=== PATIENT | female | born 1970 | race American Indian/Alaskan Native ===

== ENCOUNTER 2017-10-25 13:18 | Outpatient (CLI) | payer MEDICARE ==
--- NOTE | 2017-10-25 14:41 | History and Physical Report ---
History of Present Illness Date of examination: 10/25/17 Chief complaint: lt breast lesion Medications and Allergies Allergies Allergy/AdvReac Type Severity Reaction Status Date / Time No Known Allergies Allergy Unverified 05/22/14 18:38 Home Medications Medication Instructions Recorded Confirmed Last Taken Type Cyclobenzaprine [Flexeril 10mg] 10 mg PO TID PRN #14 tablet 05/22/14 Unknown Rx HYDROcodone/APAP 5-325 [[place] 1 each PO Q6HR PRN #14 tablet 05/22/14 Unknown Rx 5/325] Ibuprofen [Motrin 800 MG tab] 800 mg PO Q8H #30 tablet 05/22/14 Unknown Rx
--- NOTE | 2017-10-25 14:42 | Procedure Note ---
Date of procedure: 10/25/17 Pre-op diagnosis: lt breast nodule Post-op diagnosis: same Procedure: u/s guided lt breast bx Findings: solid tissue Anesthesia: local Surgeon: TRIXIE FLOWERS Estimated blood loss: none Pathology: list (lt breast tissue) Condition: stable Disposition: same day
--- NOTE | 2017-10-25 15:09 | Mammography Report ---
Ultrasound-guided left breast biopsy, clip placement, two-view mammography: Patient presents with outside images demonstrating an asymmetry in the lateral left breast for biopsy. Ultrasound imaging demonstrates that in the deep breast approximately 5 cm from the nipple in the 2:30 position there is a circumscribed ovoid shaped hypoechoic nodule with a relatively echolucent center. It measures roughly 1 cm in maximum dimension. The skin was cleansed and draped. 1% lidocaine used for local anesthesia. A 13-gauge guide was successfully placed adjacent to the lesion. With a 14-gauge disposable Bard biopsy gun several specimens were obtained under ultrasound guidance. A marker was left in place and ultrasound guidance. A followup two-view mammogram confirm positioning of the marker in the nodule as identified on the outside mammogram images. The entrance site was bandaged. The patient was given followup instructions. There were no patient or procedural complications encountered.
== END 2017-10-25 13:19 | disposition home or self-care (01) ==
LOC: SPVWC 13:18
PROVIDERS: ATTEND Internal Medicine
DX: N63.20 Unspecified lump in the left breast, unspecified quadrant (principal); N64.89 Other specified disorders of breast; R92.8 Other abnormal and inconclusive findings on diagnostic imaging of breast
CPT/HCPCS: 19083; A4648; G0206; 88305

== ENCOUNTER 2018-11-30 08:41 | Emergency (ER) | payer MEDICARE, OTHER ==
--- NOTE | 2018-11-30 09:33 | Emergency Department Report ---
- General Chief Complaint: Upper Respiratory Infection Stated Complaint: BAD COUGHT AT NIGHT Time Seen by Provider: 11/30/18 09:15 Source: patient Mode of arrival: Ambulatory Limitations: No Limitations - History of Present Illness Initial Comments: 48-year-old female presents to the ED with URI symptoms. Patient reports cough 1 week, at times productive of sputum. She states cough is worse at night, but is still present during the daytime. Patient denies fever, wheezing, shortness of breath, leg swelling MD Complaint: fever -: week(s) (1) Severity: moderate Consistency: intermittent Improves With: nothing Worsens With: nothing Associated Symptoms: cough. denies: fever, chills, shortness of breath - Related Data Previous Rx's Medication Instructions Recorded Last Taken Type Cyclobenzaprine [Flexeril 10mg] 10 mg PO TID PRN #14 tablet 05/22/14 Unknown Rx HYDROcodone/APAP 5-325 [[place] 1 each PO Q6HR PRN #14 tablet 05/22/14 Unknown Rx 5/325] Ibuprofen [Motrin 800 MG tab] 800 mg PO Q8H #30 tablet 05/22/14 Unknown Rx Benzonatate [Tessalon Perles] 100 mg PO Q8HR PRN #20 capsule 11/30/18 Unknown Rx predniSONE [Prednisone] 50 mg PO QDAY #5 tablet 11/30/18 Unknown Rx Allergies Allergy/AdvReac Type Severity Reaction Status Date / Time No Known Allergies Allergy Unverified 05/22/14 18:38 ED Review of Systems ROS: Stated complaint: BAD COUGHT AT NIGHT Other details as noted in HPI Comment: All other systems reviewed and negative Constitutional: denies: chills, fever Respiratory: cough. denies: shortness of breath, wheezing Cardiovascular: denies: chest pain Gastrointestinal: denies: nausea, vomiting Musculoskeletal: other (denies leg swelling) ED Past Medical Hx - Past Medical History Previous Medical History?: No Hx Psychiatric Treatment: Yes Additional medical history: major depression - Surgical History Past Surgical History?: Yes Hx Cholecystectomy: Yes Additional Surgical History: left kidney donated - Social History Smoking Status: Current Every Day Smoker Substance Use Type: None - Medications Home Medications: Home Medications Medication Instructions Recorded Confirmed Last Taken Type Cyclobenzaprine [Flexeril 10mg] 10 mg PO TID PRN #14 tablet 05/22/14 Unknown Rx HYDROcodone/APAP 5-325 [[place] 1 each PO Q6HR PRN #14 tablet 05/22/14 Unknown Rx 5/325] Ibuprofen [Motrin 800 MG tab] 800 mg PO Q8H #30 tablet 05/22/14 Unknown Rx Benzonatate [Tessalon Perles] 100 mg PO Q8HR PRN #20 capsule 11/30/18 Unknown Rx predniSONE [Prednisone] 50 mg PO QDAY #5 tablet 11/30/18 Unknown Rx ED Physical Exam - General Limitations: No Limitations General appearance: alert, in no apparent distress - Head Head exam: Present: atraumatic, normocephalic - Eye Eye exam: Present: normal appearance - ENT ENT exam: Present: mucous membranes moist - Neck Neck exam: Present: normal inspection - Respiratory Respiratory exam: Present: normal lung sounds bilaterally. Absent: respiratory distress - Cardiovascular Cardiovascular Exam: Present: regular rate, normal rhythm - GI/Abdominal GI/Abdominal exam: Present: soft. Absent: distended - Extremities Exam Extremities exam: Absent: pedal edema, calf tenderness - Neurological Exam Neurological exam: Present: alert, oriented X3 ED Course Vital Signs 11/30/18 09:00 Temperature 97.7 F Pulse Rate 76 Respiratory 16 Rate Blood Pressure 129/69 O2 Sat by Pulse 95 Oximetry ED Medical Decision Making - Medical Decision Making Patient afebrile, O2 sats normal, no resp distress, no pitting edema in extremities. Lungs clear on exam. Will d/c home w/ tessalon perles. Likely viral URI. Return precautions given. Outpatient follow-up advised. - Differential Diagnosis URI, pneumonia, pulm edema Critical care attestation.: If time is entered above; I have spent that time in minutes in the direct care of this critically ill patient, excluding procedure time. ED Disposition Clinical Impression: Upper respiratory infection Disposition: DC-01 TO HOME OR SELFCARE Is pt being admited?: No Condition: Stable Instructions: Upper Respiratory Infection (ED) Prescriptions: Benzonatate [Tessalon Perles] 100 mg PO Q8HR PRN #20 capsule PRN Reason: Cough predniSONE [Prednisone] 50 mg PO QDAY #5 tablet Referrals: [facility] [Provider Group] - 3-5 Days Time of Disposition: 09:35
== END 2018-11-30 09:45 | disposition home or self-care (01) ==
LOC: ED 08:41
CPT/HCPCS: 99282

== ENCOUNTER 2020-07-08 13:55 | Outpatient (CLI) | payer OTHER ==
--- NOTE | 2020-07-08 16:24 | Mammography Report ---
RIGHT DIAGNOSTIC MAMMOGRAM INDICATION: Status post right breast stereotactic biopsy COMPARISON: 06/04/2020, 05/06/2020. FINDINGS: Right breast CC and LM projection mammograms were obtained. These document location of a bi opsy marker in the right breast at the 9:00 position at middle depth. This is at the site of recent s tereotactic biopsy and the location of the biopsy marker appears accurately positioned. IMPRESSION: Right breast mammograms documenting accurate location of biopsy marker status post right breast stere otactic biopsy of calcifications located at the 9:00 position. Please see stereotactic biopsy report performed the same day for findings. . BI-RADS Category 4: Suspicious for Malignancy. Signer Name: Navdeep Garcia MD Signed: 07/08/2020 4:20 PM Workstation Name: [id number]
--- NOTE | 2020-07-12 12:33 | Mammography Report ---
PERCUTANEOUS STEREOTACTIC-GUIDED RIGHT BREAST BIOPSY WITH MARKER PLACEMENT HISTORY: Right breast calcifications. COMPARISON: 06/04/2020, 05/06/2020 (imaging performed at an outside facility) CONSENT: Technique, risks and alternatives were discussed with the patient and informed written conse nt obtained. PROCEDURE: The patient was placed in the prone position on the Siemens biopsy table. The calcifications in the r ight breast at the 9:00 position at middle depth were identified mammographically. It should be noted that there is a much larger of calcifications spanning up to 9.3 x 5.2 cm within the lateral breast. The most suspicious area of calcification is were targeted for this biopsy. Audio Visual Tech and stereo pair im ages were acquired to generate the computer-derived coordinates for targeting. The skin overlying the chosen biopsy site were cleansed with Betadine. The skin and superficial soft tissues were anesthet ized with a small amount of buffered 1% lidocaine. The deeper soft tissues were anesthetized with bu ffered 1% lidocaine with epinephrine. A small dermatotomy was created through which the mammotome biopsy device was placed. Pre and post fi re stereo pair images were acquired to confirm appropriate needle trajectory. Using vacuum assistance , multiple core specimen samples were acquired. A post procedure stereo pair image suggested adequate sampling of the target. A post procedure specimen radiograph confirmed calcifications within core sp ecimen samples. A biopsy marker was deposited at the biopsy site, and appropriate biopsy marker depo sition confirmed via a stereo pair image. Manual pressure was applied at the biopsy site to achieve hemostasis. The incision margins were appro ximated with Steri-Strips. Postprocedure care instructions were administered in both verbal and writt en forms. The patient voiced understanding and departed the [facility] in stable, satisfactory con dition. IMPRESSION Technically successful stereotactic biopsy of right breast calcifications. It should be noted that on outside images the calcifications span up to 9.3 x 5.2 cm within the lateral right breast. The most suspicious of these calcifications was targeted for this biopsy. If pathologic findings are found to be not benign, additional biopsies may be indicated if breast conservation therapy is considered. An addendum will be added to this report with pathology results at a later date. Signer Name: Navdeep Garcia MD Signed: 07/08/2020 4:15 PM Workstation Name: [id number]
== END 2020-07-08 13:56 | disposition home or self-care (01) ==
LOC: SPVWC 13:55
PROVIDERS: ATTEND Surgery
DX: R92.1 Mammographic calcification found on diagnostic imaging of breast (principal); R92.8 Other abnormal and inconclusive findings on diagnostic imaging of breast; D05.11 Intraductal carcinoma in situ of right breast; F17.210 Nicotine dependence, cigarettes, uncomplicated; F32.9 Major depressive disorder, single episode, unspecified; F41.9 Anxiety disorder, unspecified; Z98.890 Other specified postprocedural states; Z79.899 Other long term (current) drug therapy; Z90.49 Acquired absence of other specified parts of digestive tract
CPT/HCPCS: 19081; 77065; 88305; A4648

== ENCOUNTER 2020-08-21 08:13 | Outpatient (CLI) | payer OTHER ==
--- NOTE | 2020-08-21 16:47 | Magnetic Resonance Report ---
Bilateral breast MRI with and without contrast. History: New diagnosis right breast cancer Procedure: Axial T1 and T2-weighted fat-sat images were obtained precontrast. 18 cc MultiHance was i njected intravenously and serial axial T1-weighted images with fat saturation were obtained postcontr ast. 3-D MIP projections, Kinetic analysis and subtraction imaging was utilized to evaluate. A XPlace 8 channel breast coil was utilized for image acquisition. Comparison: Right mammogram postbiopsy 07/08/2020, bilateral mammogram 05/06/2020, right diagnostic edi mogram 06/04/2020, right breast ultrasound 06/04/2020 Findings: Background level of enhancement is mild. No suspicious axillary or clavicular nodes are identified. No abnormal bone marrow signal is seen. No significant chest wall enhancement is noted. Right breast: Biopsy changes are seen in the central portion of the right breast with adjacent small amount of what appears to be vascular enhancement without definite suspicious neoplastic type enhance ment seen. No other areas of significant suspicion are noted in the right breast. A small benign-appe aring lymph node is seen as is noted mammographically. Left breast: Previous biopsy site is seen in the central mid to posterior left breast as is seen mamm ographically with a contained biopsy clip. Only minimal enhancement is seen in this area. No separate areas of suspicious enhancement are seen. Impression: Biopsy changes are noted as above. No suspicious areas of enhancement are seen. BIRADS: 6: Known diagnosis breast cancer Signer Name: Vimal Chase MD Signed: 08/21/2020 4:42 PM Workstation Name: [id number]
== END 2020-08-21 08:14 | disposition home or self-care (01) ==
LOC: SPVIMAG 08:13
PROVIDERS: ATTEND Surgery
DX: C50.411 Malignant neoplasm of upper-outer quadrant of right female breast (principal)
CPT/HCPCS: A9577; C8908; 77049

== ENCOUNTER 2020-08-28 13:42 | Outpatient (CLI) | payer OTHER ==
--- NOTE | 2020-08-28 17:02 | Mammography Report ---
RIGHT BREAST STEREOTACTIC CORE NEEDLE BIOPSY, TWO SITES INDICATION: Patient has recent biopsy proven right breast DCIS. Patient presents for additional stere otactic biopsy of calcifications more anterior and posterior to the biopsy proven DCIS to evaluate ex tent of disease. The procedure was explained to the patient and informed consent obtained. PROCEDURE: The patient was positioned on the prone biopsy table with administrative program specialist and stereotactic images o btained of the right breast. After appropriate imaging, the breast was prepped with Betadine swabs. A total of 10 mL of 1% buffered lidocaine and 10 mL 1% lidocaine with epinephrine was injected using a 25-gauge needle to anesthetize the area surrounding the mammographic lesion. Using a CC from above approach, a 9-gauge vacuum-assisted core needle biopsy device was inserted to the level of the lesion following the stereotactic coordinates, targeting the posterior extent of ca lcifications in the lateral right breast. Stereotactic images were obtained to confirm accurate posit ioning of the probe. A total of 12 tissue specimens were excised and transported through the probe. Next, using a CC from below approach, a 9 gauge vacuum-assisted core needle biopsy device was inserte d to the level of the lesion following the stereotactic coordinates, targeting the anterior extent of calcifications in the central to subareolar right breast. Stereotactic images were obtained to confi rm accurate positioning of the probe. A total of 12 tissue specimens were excised and transported thr ough the probe. Individual tissue specimens were placed in the lid of the sterile specimen container and radiographed . Upon completion of the procedure, the specimens were placed in a 10% formalin solution and sent for histologic analysis. Pressure was held on the biopsy site utilizing the sterile 4 x 4 gauze until all bleeding subsided. A gauze dressing was placed over the biopsy site to provide a pressure dressing. Postbiopsy instructio ns were reviewed with the patient and a copy given to her. No immediate complications occurred. INTERPRETATION: Digital images made during the procedure show the probes to be appropriately positio jackelin during the biopsy. A micromarker clip was introduced through the probe to the level of the biopsy sites. POST-PROCEDURE MAMMOGRAM: Refer to separately dictated postbiopsy mammogram. SPECIMEN RADIOGRAPH: Magnification images of the tissue specimen were obtained. Despite what appeare d to be appropriate positioning of the biopsy probe, only 1-2 calcifications are present in the poste rior biopsy specimen, and no definitive calcifications were present in the more anterior specimen. HISTOLOGY: PENDING IMPRESSION: 1. Stereotactic biopsy of 2 sites in the right breast as detailed above. Despite what appeared to be appropriate positioning of the probes, there are few calcifications present on specimen radiograph. T herefore, additional management decisions can be made pending biopsy results. Signer Name: Dian Diaz MD Signed: 08/28/2020 4:57 PM Workstation Name: [id number]
== END 2020-08-28 13:43 | disposition home or self-care (01) ==
LOC: SPVWC 13:42
PROVIDERS: ATTEND Surgery
DX: R92.1 Mammographic calcification found on diagnostic imaging of breast (principal); D05.11 Intraductal carcinoma in situ of right breast; R92.8 Other abnormal and inconclusive findings on diagnostic imaging of breast; F32.9 Major depressive disorder, single episode, unspecified; F41.9 Anxiety disorder, unspecified; F17.210 Nicotine dependence, cigarettes, uncomplicated; Z79.899 Other long term (current) drug therapy; Z90.49 Acquired absence of other specified parts of digestive tract; Z98.890 Other specified postprocedural states
CPT/HCPCS: 19081; 19082; 88305; A4648

== ENCOUNTER 2021-04-03 11:45 | Emergency (ER) | payer MEDICARE ==
--- NOTE | 2021-04-03 14:07 | Event Note ---
ED Screening Note ED Screening Note: Patient presents for right leg pain that has been ongoing for little over a month She states that her calf feels tight and feels like she has a charley horse She states that a little over a month ago she went to [facility] and had an x-ray performed an ultrasound of her leg she states that those were normal. she states that she was advised she had cellulitis of the toe but that resolved after antibiotics She has a history of breast cancer and just finished radiation is supposed to begin chemotherapy treatment She states that she cannot get an appointment with her primary care doctor until April 15 No allergies to medicines She has varicose veins present to the bilateral lower extremities No significant edema No erythema or increased warmth Pain with palpation of the right posterior calf Sensation intact No skin changes Full range of motion of the lower extremity No bony tenderness to palpation This initial assessment/diagnostic orders/clinical plan/treatment(s) is/are subject to change based on patients health status, clinical progression and re- assessment by fellow clinical providers in the ED. Further treatment and workup at subsequent clinical providers discretion. Patient/guardian urged not to elope from the ED as their condition may be serious if not clinically assessed and managed. Initial orders include: us labs
[2021-04-03 14:48] LABS: Basophils % (Auto) 1.2 % (0.0-1.8); Eosinophils # (Auto) 0.1 K/mm3 (0.0-0.4); Hematocrit 41.6 % (30.3-42.9); Lymphocytes # (Auto) 1.2 K/mm3 (1.2-5.4); Lymphocytes % (Auto) 30.8 % (13.4-35.0); Mean Corpuscular HGB Conc 34 % (30-34); Mean Corpuscular Volume 94 fl (79-97); Monocytes # (Auto) 0.3 K/mm3 (0.0-0.8); Monocytes % (Auto) 8.7 % (0.0-7.3); Platelet Count 199 K/mm3 (140-440); Red Blood Count 4.44 M/mm3 (3.65-5.03); Red Cell Distribution Width 14.6 % (13.2-15.2)
[2021-04-03 15:01] LABS: Alanine Aminotransferase 17 units/L (7-56); BUN/Creatinine Ratio 18; Blood Urea Nitrogen 18 mg/dL (7-17); Calcium 8.9 mg/dL (8.4-10.2); Hemolysis Index 15
[2021-04-03 15:12] LABS: INR 0.98 (0.87-1.13)
[2021-04-03 15:13] LABS: Partial Thromboplastin Time 28.2 Sec. (24.2-36.6)
--- NOTE | 2021-04-03 16:17 | Vascular Lab Report ---
DUPLEX DOPPLER LOWER EXTREMITY VEINS, RIGHT INDICATION / CLINICAL INFORMATION: right calf pain, hx of cancer. TECHNIQUE: Duplex doppler imaging was performed through the veins of the right lower extremity using venous comp ression and other maneuvers. COMPARISON: None available. FINDINGS: RIGHT COMMON FEMORAL VEIN: Negative. RIGHT FEMORAL VEIN: Negative. RIGHT POPLITEAL VEIN: Negative. RIGHT CALF VEINS: Negative. ADDITIONAL FINDINGS: None. IMPRESSION: 1. No sonographic evidence for DVT in the right lower extremity. Signer Name: Claude Walker MD Signed: 04/03/2021 4:13 PM Workstation Name: [id number]
--- NOTE | 2021-04-03 16:23 | Vascular Lab Report ---
VL arterial duplex LE RT INDICATION / CLINICAL INFORMATION: right calf pain, hx of cancer. COMPARISON: None available FINDINGS: Triphasic waveforms demonstrated within the distal right external iliac artery as well as t he common femoral, superficial femoral, profunda femoral, and popliteal arteries. Biphasic waveforms within the right posterior tibial, anterior tibial, and dorsalis pedis arteries. No evidence of occlu kendra. Adjacent soft tissues are unremarkable. IMPRESSION: No sonographic evidence of significant stenosis within the arterial system of the right lower extremi ty. Doppler Waveform: - Triphasic is normal. - Biphasic is abnormal if clear transition from triphasic signal along vascular tree. - Monophasic is abnormal. Signer Name: Homer Tirado MD Signed: 04/03/2021 4:18 PM Workstation Name: [id number]
--- NOTE | 2021-04-03 16:52 | Emergency Department Report ---
ED Extremity Problem HPI - General Chief complaint: Extremity Problem,Nontraumatic Stated complaint: RT LEG PAIN Time Seen by Provider: 04/03/21 14:03 Source: patient Mode of arrival: Ambulatory Limitations: No Limitations - History of Present Illness Initial comments: Patient presents for right leg pain that has been ongoing for little over a month She states that her calf feels tight and feels like she has a "charley horse" She states that a little over a month ago she went to [facility] and had an x-ray performed an ultrasound of her leg she states that those were normal. she states that she was advised she had cellulitis of the toe but that resolved after antibiotics She has a history of breast cancer and just finished radiation is supposed to begin chemotherapy treatment She states that she cannot get an appointment with her primary care doctor until April 15 No allergies to medicines She denies any fever, drainage, redness, swelling, vomiting, diarrhea, chills, numbness, weakness Severity scale (0 -10): 5 - Related Data Previous Rx's Medication Instructions Recorded Last Taken Type Cyclobenzaprine [Flexeril 10mg] 10 mg PO TID PRN #14 tablet 05/22/14 Unknown Rx HYDROcodone/APAP 5-325 [[place] 1 each PO Q6HR PRN #14 tablet 05/22/14 Unknown Rx 5/325] Ibuprofen [Motrin 800 MG tab] 800 mg PO Q8H #30 tablet 05/22/14 Unknown Rx Benzonatate [Tessalon Perles] 100 mg PO Q8HR PRN #20 capsule 11/30/18 Unknown Rx predniSONE [Prednisone] 50 mg PO QDAY #5 tablet 11/30/18 Unknown Rx Naproxen [EC-Naprosyn] 375 mg PO BID PRN #14 tablet. 04/03/21 Unknown Rx methOCARBAMOL [Robaxin TAB] 500 mg PO BID PRN #14 tab 04/03/21 Unknown Rx Allergies Allergy/AdvReac Type Severity Reaction Status Date / Time No Known Allergies Allergy Verified 03/23/19 17:47 ED Review of Systems ROS: Stated complaint: RT LEG PAIN Other details as noted in HPI Comment: All other systems reviewed and negative ED Past Medical Hx - Past Medical History Previous Medical History?: No Hx of Cancer: Yes (Right breast CA, surgery Jan 2021) Hx Psychiatric Treatment: Yes Additional medical history: major depression - Surgical History Hx Cholecystectomy: Yes Additional Surgical History: left kidney donated - Social History Smoking Status: Current Every Day Smoker - Medications Home Medications: Home Medications Medication Instructions Recorded Confirmed Last Taken Type Cyclobenzaprine [Flexeril 10mg] 10 mg PO TID PRN #14 tablet 05/22/14 Unknown Rx HYDROcodone/APAP 5-325 [[place] 1 each PO Q6HR PRN #14 tablet 05/22/14 Unknown Rx 5/325] Ibuprofen [Motrin 800 MG tab] 800 mg PO Q8H #30 tablet 05/22/14 Unknown Rx Benzonatate [Tessalon Perles] 100 mg PO Q8HR PRN #20 capsule 11/30/18 Unknown Rx predniSONE [Prednisone] 50 mg PO QDAY #5 tablet 11/30/18 Unknown Rx Naproxen [EC-Naprosyn] 375 mg PO BID PRN #14 tablet. 04/03/21 Unknown Rx methOCARBAMOL [Robaxin TAB] 500 mg PO BID PRN #14 tab 04/03/21 Unknown Rx ED Physical Exam - General Limitations: No Limitations General appearance: alert, in no apparent distress - Head Head exam: Present: atraumatic, normocephalic - Eye Eye exam: Present: normal appearance - ENT ENT exam: Present: mucous membranes moist - Respiratory Respiratory exam: Present: normal lung sounds bilaterally. Absent: respiratory distress, wheezes, rales, rhonchi, stridor, chest wall tenderness, accessory muscle use, decreased breath sounds, prolonged expiratory - Cardiovascular Cardiovascular Exam: Present: regular rate, normal rhythm, normal heart sounds. Absent: systolic murmur, diastolic murmur, rubs, gallop - Extremities Exam Extremities exam: Present: other (ttp to the right posterior calf, no bony ttp of the RLE, no obvious edema, no erythema, no increased warmth, no signs of ulceration, FROM of the RLE, neurovasculalry intact, multiple varicosities) - Neurological Exam Neurological exam: Present: alert, oriented X3 - Psychiatric Psychiatric exam: Present: normal affect, normal mood - Skin Skin exam: Present: warm, dry, intact ED Course Vital Signs 04/03/21 12:57 Temperature 98.3 F Pulse Rate 68 Respiratory 18 Rate O2 Sat by Pulse 100 Oximetry ED Medical Decision Making - Lab Data Result diagrams: 04/03/21 14:26 04/03/21 14:26 Lab Results 04/03/21 04/03/21 04/03/21 Range/Units 14:26 14:26 14:26 WBC 4.0 L (4.5-11.0) K/mm3 RBC 4.44 (3.65-5.03) M/mm3 Hgb 14.0 (10.1-14.3) gm/dl Hct 41.6 (30.3-42.9) % MCV 94 (79-97) fl MCH 32 (28-32) pg MCHC 34 (30-34) % RDW 14.6 (13.2-15.2) % Plt Count 199 (140-440) K/mm3 Lymph % (Auto) 30.8 (13.4-35.0) % [place] % (Auto) 8.7 H (0.0-7.3) % Eos % (Auto) 2.0 (0.0-4.3) % Baso % (Auto) 1.2 (0.0-1.8) % Lymph # (Auto) 1.2 (1.2-5.4) K/mm3 [place] # (Auto) 0.3 (0.0-0.8) K/mm3 Eos # (Auto) 0.1 (0.0-0.4) K/mm3 Baso # (Auto) 0.0 (0.0-0.1) K/mm3 Seg Neutrophils % 57.3 (40.0-70.0) % Seg Neutrophils # 2.3 (1.8-7.7) K/mm3 PT 12.8 (12.2-14.9) Sec. INR 0.98 (0.87-1.13) APTT 28.2 (24.2-36.6) Sec. Sodium 137 (137-145) mmol/L Potassium 4.3 (3.6-5.0) mmol/L Chloride 101.4 (98-107) mmol/L Carbon Dioxide 27 (22-30) mmol/L Anion Gap 13 mmol/L BUN 18 H (7-17) mg/dL Creatinine 1.0 (0.6-1.2) mg/dL Estimated GFR > 60 ml/min BUN/Creatinine Ratio 18 % Glucose 93 (65-100) mg/dL Calcium 8.9 (8.4-10.2) mg/dL Total Bilirubin 0.20 (0.1-1.2) mg/dL AST 20 (5-40) units/L ALT 17 (7-56) units/L Alkaline Phosphatase 108 (35-129) units/L Total Protein 7.2 (6.3-8.2) g/dL Albumin 4.0 (3.9-5) g/dL Albumin/Globulin Ratio 1.3 % - Radiology Data Radiology results: report reviewed Ordering Physician: MESFIN ROD Date of Service: 04/03/21 Procedure(s): VL venous duplex LE RT Accession Number(s): [id number] cc: MESFIN ROD DUPLEX DOPPLER LOWER EXTREMITY VEINS, RIGHT INDICATION / CLINICAL INFORMATION: right calf pain, hx of cancer. TECHNIQUE: Duplex doppler imaging was performed through the veins of the right lower extremity using venous compression and other maneuvers. COMPARISON: None available. FINDINGS: RIGHT COMMON FEMORAL VEIN: Negative. RIGHT FEMORAL VEIN: Negative. RIGHT POPLITEAL VEIN: Negative. RIGHT CALF VEINS: Negative. ADDITIONAL FINDINGS: None. IMPRESSION: 1. No sonographic evidence for DVT in the right lower extremity. Signer Name: Claude Puentes MD Signed: 04/03/2021 4:13 PM Workstation Name: [id number] Transcribed By: CH Dictated By: CLAUDE PUENTES Electronically Authenticated By: CLAUDE PUENTES Signed Date/Time: 04/03/211612 DD/ 11 TD/TT: Ordering Physician: MESFIN ROD Date of Service: 04/03/21 Procedure(s): VL arterial duplex LE RT Accession Number(s): [id number] cc: MESFIN ROD VL arterial duplex LE RT INDICATION / CLINICAL INFORMATION: right calf pain, hx of cancer. COMPARISON: None available FINDINGS: Triphasic waveforms demonstrated within the distal right external iliac artery as well as the common femoral, superficial femoral, profunda femoral, and popliteal arteries. Biphasic waveforms within the right posterior tibial, anterior tibial, and dorsalis pedis arteries. No evidence of occlusion. Adjacent soft tissues are unremarkable. IMPRESSION: No sonographic evidence of significant stenosis within the arterial system of the right lower extremity. Doppler Waveform: - Triphasic is normal. - Biphasic is abnormal if clear transition from triphasic signal along vascular tree. - Monophasic is abnormal. Signer Name: Abigail Tirado MD Signed: 04/03/2021 4:18 PM Workstation Name: [id number] Transcribed By: JS Dictated By: ABIGAIL TIRADO MD Electronically Authenticated By: ABIGAIL TIRADO MD Signed Date/Time: 04/03/211617 DD/ 15 TD/TT: Print - Medical Decision Making Patient presents for right leg pain that has been ongoing for little over a month She states that her calf feels tight and feels like she has a "charley horse" She states that a little over a month ago she went to [facility] and had an x-ray performed an ultrasound of her leg she states that those were normal. she states that she was advised she had cellulitis of the toe but that resolved after antibiotics She has a history of breast cancer and just finished radiation is supposed to begin chemotherapy treatment She states that she cannot get an appointment with her primary care doctor until April 15 No allergies to medicines She denies any fever, drainage, redness, swelling, vomiting, diarrhea, chills, numbness, weakness Vitals are stable. On exam:ttp to the right posterior calf, no bony ttp of the RLE, no obvious edema, no erythema, no increased warmth, no signs of ulceration, FROM of the RLE, neurovasculalry intact, multiple varicosities. Given patient's history of cancer and having calf pain ultrasounds were ordered. She is not having any chest pain or shortness of breath. She has no clinical signs of PE. Venous lower extremity ultrasound: 1. No sonographic evidence for DVT in the right lower extremity. Arterial lower extremity ultrasound: No sonographic evidence of significant stenosis within the arterial system of the right lower extremity. labs are stable. She has no signs of cellulitis, skin is intact, no signs of ulceration, no signs of septic joint or gout. Patient given prescription for medications. Advised patient Please take medication as prescribed as needed. Do not drive or operate machinery while taking muscle relaxer Robaxin. May use ice pack, heating pad, rest, and epsom salt bath. Follow-up with your primary care doctor. Follow-up with a vascular doctor. Return to emergency room for any new or worsening symptoms. Critical care attestation.: If time is entered above; I have spent that time in minutes in the direct care of this critically ill patient, excluding procedure time. ED Disposition Clinical Impression: Right leg pain Varicose vein of leg Qualifiers: Varicose vein complication: unspecified Laterality: right Qualified Code(s): I83.91 - Asymptomatic varicose veins of right lower extremity Disposition: DC-01 TO HOME OR SELFCARE Is pt being admited?: No Does the pt Need Aspirin: No Condition: Stable Instructions: Varicose Veins, Leg Cramps Additional Instructions: Please take medication as prescribed as needed. Do not drive or operate [employer] while taking muscle relaxer Robaxin. May use ice pack, heating pad, rest, and epsom salt bath. Follow-up with your primary care doctor. Follow-up with a vascular doctor. Return to emergency room for any new or worsening symptoms. Prescriptions: Naproxen [EC-Naprosyn] 375 mg PO BID PRN #14 tablet.dr LUCERO Reason: pain methOCARBAMOL [Robaxin TAB] 500 mg PO BID PRN #14 tab PRN Reason: muscle spasm/pain Referrals: KAN GREGORY MD [Primary Care Provider] - 2-3 Days [facility] [Provider Group] - 2-3 Days Time of Disposition: 16:50 Print Language: GUATEMALAN
== END 2021-04-03 17:28 | disposition home or self-care (01) ==
LOC: ED 11:45
DX: I83.91 Asymptomatic varicose veins of right lower extremity (principal); F32.9 Major depressive disorder, single episode, unspecified; F17.200 Nicotine dependence, unspecified, uncomplicated; Z90.49 Acquired absence of other specified parts of digestive tract; Z79.899 Other long term (current) drug therapy
CPT/HCPCS: 36415; 80053; 85025; 85610; 85730; 99283

== ENCOUNTER 2022-06-07 11:59 | Emergency (ER) | payer MEDICARE ==
--- NOTE | 2022-06-07 12:44 | XRay Report ---
CHEST 2 VIEWS INDICATION / CLINICAL INFORMATION: SOB. COMPARISON: None available. FINDINGS: SUPPORT DEVICES: None. HEART / MEDIASTINUM: The heart size and pulmonary vasculature are normal. LUNGS / PLEURA: No significant pulmonary or pleural abnormality. No pneumothorax. ADDITIONAL FINDINGS: The left hemidiaphragm is slightly higher than the right, unchanged. There is a right cervical rib. IMPRESSION: No acute findings. Signer Name: Dion Pierre MD Signed: 06/07/2022 12:39 PM Workstation Name: [id number]
[2022-06-07] MEDS ORDERED: IPRATROPIUM/ALBUTEROL SULFATE 3 ML AMPUL.NEB IH ONE (14:59)
[2022-06-07] MEDS ORDERED: BENZONATATE 100 MG CAP PO ONE (14:59)
[2022-06-07] MEDS ORDERED: ACETAMINOPHEN W/CODEINE 300-30 MG TAB PO ONE (14:59)
[2022-06-07] MEDS ORDERED: predniSONE 20 MG TAB PO ONE (14:59)
--- NOTE | 2022-06-07 15:57 | Emergency Department Report ---
ED ENT HPI - General Chief complaint: Upper Respiratory Infection Stated complaint: WHEEZING/COUGH/RUNNY NOSE Time Seen by Provider: 06/07/22 14:52 Source: patient Mode of arrival: Ambulatory Limitations: No Limitations - History of Present Illness Initial comments: 51-year-old black female with a past medical history of breast cancer presents to the emergency department for evaluation of 1 week history of shortness of breath, wheezing, cough, congestion, and runny nose. She denies fever and chest pain. She states that she has taken some aewy-dey-uvtvwzb medications without any improvement. MD complaint: other (Wheezing, shortness of breath, cough, congestion, and runny nose) -: Gradual, week(s) (1) Severity scale (0 -10): 0 Associated Symptoms: cough, rhinorrhea. denies: fever, gum swelling, toothache, pain with swallowing, sore throat, tinnitus, hearing loss, discharge from ear - Related Data Previous Rx's Medication Instructions Recorded Last Taken Type Cyclobenzaprine [Flexeril 10mg] 10 mg PO TID PRN #14 tablet 05/22/14 Unknown Rx HYDROcodone/APAP 5-325 [[place] 1 each PO Q6HR PRN #14 tablet 05/22/14 Unknown Rx 5/325] Ibuprofen [Motrin 800 MG tab] 800 mg PO Q8H #30 tablet 05/22/14 Unknown Rx Benzonatate [Tessalon Perles] 100 mg PO Q8HR PRN #20 capsule 11/30/18 Unknown Rx predniSONE [Prednisone] 50 mg PO QDAY #5 tablet 11/30/18 Unknown Rx Naproxen [EC-Naprosyn] 375 mg PO BID PRN #14 tablet. 04/03/21 Unknown Rx methOCARBAMOL [Robaxin TAB] 500 mg PO BID PRN #14 tab 04/03/21 Unknown Rx Albuterol Mdi (or & Nicu Only) 2 puff IH QID PRN #8.5 gram 06/07/22 Unknown Rx [ProAir HFA Inhaler] Benzonatate [Tessalon Perles] 100 mg PO Q8HR PRN #30 cap 06/07/22 Unknown Rx Prednisone [predniSONE 10 mg 10 mg PO .TAPER #1 pack 06/07/22 Unknown Rx (6-Day Pack, 21 Tabs)] guaiFENesin/CODEINE [Robitussin AC] 5 ml PO TID PRN #120 ml 06/07/22 Unknown Rx Allergies Allergy/AdvReac Type Severity Reaction Status Date / Time No Known Allergies Allergy Verified 03/23/19 17:47 ED Dental HPI - General Chief complaint: Upper Respiratory Infection Stated complaint: WHEEZING/COUGH/RUNNY NOSE Time Seen by Provider: 06/07/22 14:52 Source: patient Mode of arrival: Ambulatory Limitations: No Limitations - Related Data Previous Rx's Medication Instructions Recorded Last Taken Type Cyclobenzaprine [Flexeril 10mg] 10 mg PO TID PRN #14 tablet 05/22/14 Unknown Rx HYDROcodone/APAP 5-325 [[place] 1 each PO Q6HR PRN #14 tablet 05/22/14 Unknown Rx 5/325] Ibuprofen [Motrin 800 MG tab] 800 mg PO Q8H #30 tablet 05/22/14 Unknown Rx Benzonatate [Tessalon Perles] 100 mg PO Q8HR PRN #20 capsule 11/30/18 Unknown Rx predniSONE [Prednisone] 50 mg PO QDAY #5 tablet 11/30/18 Unknown Rx Naproxen [EC-Naprosyn] 375 mg PO BID PRN #14 tablet. 04/03/21 Unknown Rx methOCARBAMOL [Robaxin TAB] 500 mg PO BID PRN #14 tab 04/03/21 Unknown Rx Albuterol Mdi (or & Nicu Only) 2 puff IH QID PRN #8.5 gram 06/07/22 Unknown Rx [ProAir HFA Inhaler] Benzonatate [Tessalon Perles] 100 mg PO Q8HR PRN #30 cap 06/07/22 Unknown Rx Prednisone [predniSONE 10 mg 10 mg PO .TAPER #1 pack 06/07/22 Unknown Rx (6-Day Pack, 21 Tabs)] guaiFENesin/CODEINE [Robitussin AC] 5 ml PO TID PRN #120 ml 06/07/22 Unknown Rx Allergies Allergy/AdvReac Type Severity Reaction Status Date / Time No Known Allergies Allergy Verified 03/23/19 17:47 ED Review of Systems ROS: Stated complaint: WHEEZING/COUGH/RUNNY NOSE Other details as noted in HPI Comment: All other systems reviewed and negative Constitutional: denies: chills, diaphoresis, fever, malaise, weakness Eyes: denies: eye pain, eye discharge, vision change ENT: congestion. denies: ear pain, throat pain Respiratory: cough, shortness of breath, wheezing. denies: SOB with exertion, SOB at rest, stridor Cardiovascular: denies: chest pain, palpitations, dyspnea on exertion, orthopnea, edema, syncope, paroxysmal nocturnal dyspnea Gastrointestinal: denies: abdominal pain, nausea, vomiting Genitourinary: denies: urgency, dysuria Musculoskeletal: denies: back pain Skin: denies: rash, lesions Neurological: denies: headache, weakness, numbness ED Past Medical Hx - Past Medical History Hx Psychiatric Treatment: Yes Additional medical history: major depression - Surgical History Hx Cholecystectomy: Yes Additional Surgical History: left kidney donated - Social History Smoking Status: Former Smoker - Medications Home Medications: Home Medications Medication Instructions Recorded Confirmed Last Taken Type Cyclobenzaprine [Flexeril 10mg] 10 mg PO TID PRN #14 tablet 05/22/14 Unknown Rx HYDROcodone/APAP 5-325 [[place] 1 each PO Q6HR PRN #14 tablet 05/22/14 Unknown Rx 5/325] Ibuprofen [Motrin 800 MG tab] 800 mg PO Q8H #30 tablet 05/22/14 Unknown Rx Benzonatate [Tessalon Perles] 100 mg PO Q8HR PRN #20 capsule 11/30/18 Unknown Rx predniSONE [Prednisone] 50 mg PO QDAY #5 tablet 11/30/18 Unknown Rx Naproxen [EC-Naprosyn] 375 mg PO BID PRN #14 tablet.dr 04/03/21 Unknown Rx methOCARBAMOL [Robaxin TAB] 500 mg PO BID PRN #14 tab 04/03/21 Unknown Rx Albuterol Mdi (or & Nicu Only) 2 puff IH QID PRN #8.5 gram 06/07/22 Unknown Rx [ProAir HFA Inhaler] Benzonatate [Tessalon Perles] 100 mg PO Q8HR PRN #30 cap 06/07/22 Unknown Rx Prednisone [predniSONE 10 mg 10 mg PO .TAPER #1 pack 06/07/22 Unknown Rx (6-Day Pack, 21 Tabs)] guaiFENesin/CODEINE [Robitussin AC] 5 ml PO TID PRN #120 ml 06/07/22 Unknown Rx ED Physical Exam - General Limitations: No Limitations General appearance: alert, in no apparent distress - Head Head exam: Present: atraumatic, normocephalic - Eye Eye exam: Present: normal appearance. Absent: scleral icterus, conjunctival injection, periorbital swelling, periorbital tenderness - ENT ENT exam: Present: TM's normal bilaterally. Absent: normal exam (Bilateral nasal mucosal edema), normal orophraynx (Erythema noted to the oropharynx) - Expanded ENT Exam Expanded Mouth exam: Present: normal external inspection Throat exam: Negative: tonsillar erythema, tonsillomegaly, tonsillar exudate, R peritonsillar mass, L peritonsillar mass - Neck Neck exam: Present: normal inspection, full ROM. Absent: tenderness, lymphadenopathy - Respiratory Respiratory exam: Present: wheezes. Absent: respiratory distress, rales, rhonchi, stridor, chest wall tenderness - Cardiovascular Cardiovascular Exam: Present: regular rate, normal heart sounds - GI/Abdominal GI/Abdominal exam: Present: soft, normal bowel sounds. Absent: distended, tenderness, guarding, rebound, rigid - Extremities Exam Extremities exam: Present: normal inspection, normal capillary refill. Absent: pedal edema, joint swelling, calf tenderness - Back Exam Back exam: Present: normal inspection. Absent: CVA tenderness (R), CVA tenderness (L) - Neurological Exam Neurological exam: Present: alert, oriented X3, CN II-XII intact, normal gait - Psychiatric Psychiatric exam: Present: normal affect, normal mood - Skin Skin exam: Present: warm, dry, intact, normal color ED Course Vital Signs 06/07/22 06/07/22 12:04 16:00 Temperature 97.9 F 98.5 F Pulse Rate 92 H 87 Respiratory 18 18 Rate Blood Pressure 111/73 Blood Pressure 128/86 [Left] O2 Sat by Pulse 95 97 Oximetry ED Medical Decision Making - EKG Data Interpretation: no acute changes, normal EKG - Radiology Data Radiology results: report reviewed, image reviewed CXR: FINDINGS: SUPPORT DEVICES: None. HEART / MEDIASTINUM: The heart size and pulmonary vasculature are normal. LUNGS / PLEURA: No significant pulmonary or pleural abnormality. No pneumothorax. ADDITIONAL FINDINGS: The left hemidiaphragm is slightly higher than the right, unchanged. There is a right cervical rib. IMPRESSION: No acute findings - Medical Decision Making 51-year-old black female with a past medical history of breast cancer presents to the emergency department for evaluation of 1 week history of shortness of breath, wheezing, cough, congestion, and runny nose. She denies fever and chest pain. She states that she has taken some lcii-rvg-ipjjgiw medications without any improvement. Chest x-ray without any acute abnormalities noted. Physical exam consistent with URI with cough and congestion. Patient be discharged home with steroid Dosepak, Tessalon Perles, and Robitussin-AC to take as directed. She is advised to follow-up with her primary care provider if no improvement or worsening symptoms or return to the emergency department for any concerning symptoms. She verbalizes understanding of and agreement with plan of care. Critical care attestation.: If time is entered above; I have spent that time in minutes in the direct care of this critically ill patient, excluding procedure time. ED Disposition Clinical Impression: URI with cough and congestion, Wheezing Disposition: 01 HOME / SELF CARE / HOMELESS Is pt being admited?: No Does the pt Need Aspirin: No Condition: Stable Instructions: Cough, Adult, [id number], How to Use a Metered Dose Inhaler, Upper Respiratory Infection, Adult, Fpty-yw-Fhrb Additional Instructions: Take medications as prescribed. Follow-up with your primary care provider if no improvement or worsening symptoms. Return to the emergency department as needed. Prescriptions: Prednisone [predniSONE 10 mg (6-Day Pack, 21 Tabs)] 10 mg PO .TAPER #1 pack Albuterol Mdi (or & Nicu Only) [ProAir HFA Inhaler] 2 puff IH QID PRN #8.5 gram PRN Reason: Shortness Of Breath guaiFENesin/CODEINE [Robitussin AC] 5 ml PO TID PRN #120 ml PRN Reason: Cough Benzonatate [Tessalon Perles] 100 mg PO Q8HR PRN #30 cap PRN Reason: cough Referrals: ELAINE HOWARD MD [Staff Physician] - 3-5 Days Forms: Work/School Release Form(ED) Time of Disposition: 15:57
[2022-06-07 16:16] VITALS: BP 128/86
--- NOTE | 2022-06-08 10:04 | Electrocardiograph Report ---
[facility] Test Date: 2022-06-07 Test Time: 12:12:29 Pat Name: ALEXANDRE MORENO Department: Room: Gender: F [employer] Order Clerk: TARA : 1970 Requested By: ED DOC Order Number: [id number] Reading MD: Jamel Judge Measurements Intervals [place] Rate: 77 P: 58 LA: 130 QRS: 34 QRSD: 82 T: -52 QT: 369 QTc: 418 Interpretive Statements Sinus rhythm Low voltage, precordial leads Abnormal T, consider ischemia, diffuse leads No previous ECG available for comparison Electronically Signed On 06-08-2022 10:03:21 EDT by Jamel Judge
== END 2022-06-07 16:16 | disposition home or self-care (01) ==
LOC: ED 11:59
DX: J06.9 Acute upper respiratory infection, unspecified (principal); R05.9 Cough, unspecified; R09.81 Nasal congestion; R06.2 Wheezing; Z79.899 Other long term (current) drug therapy
CPT/HCPCS: 71046; 93005; 94640; 99283

== ENCOUNTER 2022-07-06 21:52 | Emergency (ER) | payer MEDICARE ==
--- NOTE | 2022-07-07 05:13 | Emergency Department Report ---
ED Extremity Problem HPI - General Chief complaint: Extremity Problem,Nontraumatic Stated complaint: SWOLLEN FEET Source: patient Mode of arrival: Ambulatory Limitations: No Limitations - History of Present Illness Initial comments: Patient is a 52-year-old female with a history of depression who presents to the ED with complaint of acute onset persistent bilateral foot swelling unchanged for the last 1 week. Patient states that the swelling is intermittent and improves whenever she elevates her legs sometimes. Patient denies dizziness, syncope, chest pain or shortness of breath, fever, chills, traumatic injury, low back pain, numbness and tingling or weakness of lower and upper extremities bilaterally, heavy lifting or fall. MD Complaint: extremity pain (bilateral foot swelling), extremity swelling (bilateral foot pain and swelling), joint swelling, joint paint -: Gradual, week(s) (1) Location: bilateral lower extremity History of Same: Yes -: Yes arthralgia Radiation: none Severity scale (0 -10): 3 Quality: dull Consistency: intermittent Improves with: nothing Worsens with: weight bearing, walking, exertion, palpation Associated Symptoms: denies other symptoms, arthralgias. denies: chest pain, shortness of breath, fever, myalgias, rash - Related Data Previous Rx's Medication Instructions Recorded Last Taken Type Cyclobenzaprine [Flexeril 10mg] 10 mg PO TID PRN #14 tablet 05/22/14 Unknown Rx HYDROcodone/APAP 5-325 [[place] 1 each PO Q6HR PRN #14 tablet 05/22/14 Unknown Rx 5/325] Ibuprofen [Motrin 800 MG tab] 800 mg PO Q8H #30 tablet 05/22/14 Unknown Rx Benzonatate [Tessalon Perles] 100 mg PO Q8HR PRN #20 capsule 11/30/18 Unknown Rx predniSONE [Prednisone] 50 mg PO QDAY #5 tablet 11/30/18 Unknown Rx Naproxen [EC-Naprosyn] 375 mg PO BID PRN #14 tablet. 04/03/21 Unknown Rx methOCARBAMOL [Robaxin TAB] 500 mg PO BID PRN #14 tab 04/03/21 Unknown Rx Albuterol Mdi (or & Nicu Only) 2 puff IH QID PRN #8.5 gram 06/07/22 Unknown Rx [ProAir HFA Inhaler] Benzonatate [Tessalon Perles] 100 mg PO Q8HR PRN #30 cap 06/07/22 Unknown Rx Prednisone [predniSONE 10 mg 10 mg PO .TAPER #1 pack 06/07/22 Unknown Rx (6-Day Pack, 21 Tabs)] guaiFENesin/CODEINE [Robitussin AC] 5 ml PO TID PRN #120 ml 06/07/22 Unknown Rx Ibuprofen [Motrin] 800 mg PO Q8HR PRN #30 tablet 07/07/22 Unknown Rx Allergies Allergy/AdvReac Type Severity Reaction Status Date / Time No Known Allergies Allergy Verified 03/23/19 17:47 ED Review of Systems ROS: Stated complaint: SWOLLEN FEET Other details as noted in HPI Constitutional: denies: chills, fever Eyes: denies: eye pain, eye discharge, vision change ENT: denies: ear pain, throat pain Respiratory: denies: cough, shortness of breath, wheezing Cardiovascular: denies: chest pain, palpitations Endocrine: no symptoms reported Gastrointestinal: denies: abdominal pain, nausea, vomiting, diarrhea Genitourinary: denies: urgency, dysuria, discharge Musculoskeletal: joint swelling ( bilateral foot swelling), arthralgia (Bilateral foot pain and swelling). denies: back pain Skin: denies: rash, lesions Neurological: denies: headache, weakness, paresthesias Psychiatric: denies: anxiety, depression Hematological/Lymphatic: denies: easy bleeding, easy bruising ED Past Medical Hx - Past Medical History Hx Psychiatric Treatment: Yes Additional medical history: major depression - Surgical History Hx Cholecystectomy: Yes Additional Surgical History: left kidney donated - Social History Smoking Status: Former Smoker - Medications Home Medications: Home Medications Medication Instructions Recorded Confirmed Last Taken Type Cyclobenzaprine [Flexeril 10mg] 10 mg PO TID PRN #14 tablet 05/22/14 Unknown Rx HYDROcodone/APAP 5-325 [[place] 1 each PO Q6HR PRN #14 tablet 05/22/14 Unknown Rx 5/325] Ibuprofen [Motrin 800 MG tab] 800 mg PO Q8H #30 tablet 05/22/14 Unknown Rx Benzonatate [Tessalon Perles] 100 mg PO Q8HR PRN #20 capsule 11/30/18 Unknown Rx predniSONE [Prednisone] 50 mg PO QDAY #5 tablet 11/30/18 Unknown Rx Naproxen [EC-Naprosyn] 375 mg PO BID PRN #14 tablet. 04/03/21 Unknown Rx methOCARBAMOL [Robaxin TAB] 500 mg PO BID PRN #14 tab 04/03/21 Unknown Rx Albuterol Mdi (or & Nicu Only) 2 puff IH QID PRN #8.5 gram 06/07/22 Unknown Rx [ProAir HFA Inhaler] Benzonatate [Tessalon Perles] 100 mg PO Q8HR PRN #30 cap 06/07/22 Unknown Rx Prednisone [predniSONE 10 mg 10 mg PO .TAPER #1 pack 06/07/22 Unknown Rx (6-Day Pack, 21 Tabs)] guaiFENesin/CODEINE [Robitussin AC] 5 ml PO TID PRN #120 ml 06/07/22 Unknown Rx Ibuprofen [Motrin] 800 mg PO Q8HR PRN #30 tablet 07/07/22 Unknown Rx ED Physical Exam - General Limitations: No Limitations General appearance: alert, in no apparent distress - Head Head exam: Present: atraumatic, normocephalic - Eye Eye exam: Present: normal appearance, PERRL, EOMI Pupils: Present: normal accommodation - ENT ENT exam: Present: normal exam, normal orophraynx, mucous membranes moist, TM's normal bilaterally, normal external ear exam - Neck Neck exam: Present: normal inspection, full ROM. Absent: tenderness - Respiratory Respiratory exam: Present: normal lung sounds bilaterally. Absent: respiratory distress, wheezes, rales, rhonchi, stridor, accessory muscle use, decreased breath sounds, prolonged expiratory - Cardiovascular Cardiovascular Exam: Present: regular rate, normal rhythm, normal heart sounds. Absent: systolic murmur, diastolic murmur, rubs, gallop - GI/Abdominal GI/Abdominal exam: Present: soft, normal bowel sounds. Absent: tenderness, guarding, rebound, hyperactive bowel sounds, hypoactive bowel sounds, organomegaly, mass - Extremities Exam Extremities exam: Present: normal inspection, full ROM, normal capillary refill, joint swelling (Mild bilateral foot swelling). Absent: tenderness, calf tenderness, other - Back Exam Back exam: Present: normal inspection, full ROM. Absent: tenderness, CVA tenderness (R), CVA tenderness (L), muscle spasm, paraspinal tenderness, vertebral tenderness - Neurological Exam Neurological exam: Present: alert, oriented X3, CN II-XII intact, normal gait, reflexes normal - Psychiatric Psychiatric exam: Present: normal affect, normal mood - Skin Skin exam: Present: warm, dry, intact, normal color. Absent: rash ED Course Vital Signs 07/06/22 22:51 Temperature 98.6 F Pulse Rate 84 Respiratory 18 Rate Blood Pressure 142/78 O2 Sat by Pulse 100 Oximetry ED Medical Decision Making - Medical Decision Making This is a 52-year-old female with a history of depression who presents to the ED with complaint of acute onset persistent bilateral foot swelling unchanged for the last 1 week. Patient states that the swelling is intermittent and improves whenever she elevates her legs sometimes. In the ED, patient is alert and oriented x3 and is not in any distress. Given the history and physical exam findings, the patient will discharge home on medications and advised to follow- up with her primary care physician in 7 to 10 days for reevaluation. Patient is advised to return to the ED immediately if symptoms get worse. - Differential Diagnosis muscle strain; muscle spasm; dependent edema Critical care attestation.: If time is entered above; I have spent that time in minutes in the direct care of this critically ill patient, excluding procedure time. ED Disposition Clinical Impression: Bilateral swelling of feet Disposition: 01 HOME / SELF CARE / HOMELESS Is pt being admited?: No Does the pt Need Aspirin: No Condition: Stable Instructions: Rascon Splints, [id number], Foot Pain Additional Instructions: The swelling in your feet is due to dependent edema which can easily be controlled by elevating your feet above your heart when at rest. Alternatively can also wear rascon splints or pressure stockings to control the swelling. Therefore take [id number] medication for pain and return to the ED immediately if symptoms get worse, otherwise follow-up with your primary care physician in 7 to 10 days for reevaluation. Prescriptions: Ibuprofen [Motrin] 800 mg PO Q8HR PRN #30 tablet PRN Reason: Pain , Severe (7-10) Referrals: [facility] [Provider Group] - 7-10 days Time of Disposition: 05:11 Print Language: SPANISH
[2022-07-07 06:34] VITALS: BP 147/80
== END 2022-07-07 06:34 | disposition home or self-care (01) ==
LOC: ED 21:52
DX: M25.475 Effusion, left foot (principal); M25.474 Effusion, right foot
CPT/HCPCS: 99282

== ENCOUNTER 2022-08-05 17:35 | Emergency (ER) | payer MEDICARE | END 2022-08-05 18:53 | disposition left against medical advice (07) | LOC: ED 17:35 | DX: Z53.21 Procedure and treatment not carried out due to patient leaving prior to being seen by health care provider (principal); R05.9 Cough, unspecified ==